=== PATIENT | female | born 1950 | race Caucasian/White ===

== ENCOUNTER 2023-05-03 22:43 | Emergency (ER) | payer MEDICARE ==
[2023-05-03] MEDS ORDERED: fentaNYL 50 MCG/ML SDV IVPUSH ONE (23:10)
[2023-05-03] MEDS ORDERED: Ondansetron 4 MG/2 ML SDV IVPUSH ONE (23:10)
[2023-05-03 23:48] LABS: C-REACTIVE PROTEIN 1.76 mg/dL (0.0-0.3); CALCIUM 8.6 mg/dL (8.5-10.1); EST CRCL DRUG DOSING (CG) 36.53 mL/min; POTASSIUM,K 3.9 mmol/L (3.6-5.2)
[2023-05-03] MEDS ORDERED: Ketorolac 15 MG/ML SDV IVPUSH ONE (23:48)
[2023-05-03 23:52] LABS: ANION GAP 11.9 mmol/L (5.0-14.0)
[2023-05-03 23:54] LABS: BASOPHILS ABSOLUTE AUTO 0.03 K/uL (0.00-0.10); BASOPHILS PERCENT AUTO 0.4 % (0.1-1.3); EOSINOPHILS PERCENT AUTO 0.1 % (0.0-5.4); HEMATOCRIT 42.1 % (34.3-46.0); HEMOGLOBIN 13.4 g/dL (11.2-15.5); IMMATURE GRAN PERCENT AUTO 1.4 % (0.0-0.7); LYMPHOCYTES ABSOLUTE AUTO 0.89 K/uL (0.8-3.3); LYMPHOCYTES PERCENT AUTO 12.8 % (11.4-47.7); MEAN CORPUSCULAR HEMOGLOBIN 28.6 pg (31.6-35.5); MEAN CORPUSCULAR HGB CONC 31.8 g/dL (31.6-35.5); MONOCYTES ABSOLUTE AUTO 0.56 K/uL (0.20-0.90); NEUTROPHILS ABSOLUTE AUTO 5.37 K/uL (1.0-7.6); NEUTROPHILS PERCENT AUTO 77.3 % (40.0-78.1); PLATELET COUNT,PLT 191 K/uL (130-375); RED BLOOD CELL COUNT 4.68 M/uL (3.77-5.24)
[2023-05-04] LABS: EOSINOPHILS ABSOLUTE AUTO 0.01 K/uL (0.00-0.40)
[2023-05-04 00:04] VITALS: BP 132/73; PULSE 84
== END 2023-05-04 00:55 | disposition home or self-care (01) ==
LOC: JP.ED 22:43
DX: U07.1 COVID-19 (principal); G44.209 Tension-type headache, unspecified, not intractable
CPT/HCPCS: 36415; 70450; 80048; 82947; 85025; 86140; 96374; 96375; 99284; J1885; J2405; J3010; U0002